=== PATIENT | male | born 1935 | race Caucasian/White ===

== ENCOUNTER 2022-01-19 05:23 | Day surgery (SDC) | payer OTHER ==
[2022-01-15 09:43] VITALS: BMI 23.5
[2022-01-19] MEDS ORDERED: BUPIVACAINE HCL/PF 0.5% (5MG/ML) 10 ML VIAL ONE (07:06)
[2022-01-19] MEDS ORDERED: TRIAMCINOLONE ACET 40MG/1ML VIAL ONE (07:06)
[2022-01-19] MEDS ORDERED: DEXAMETHASONE SOD PHOSPHATE 10 MG/1 ML VIAL ONE (07:06)
[2022-01-19] MEDS ORDERED: BUPIVACAINE HCL/PF 0.75% 10 ML VIAL ONE (07:06)
[2022-01-19] MEDS ORDERED: LIDOCAINE HCL/PF 1% SDV 5ML VIAL ONE (07:08)
[2022-01-19] MEDS ORDERED: SODIUM CHLORIDE 0.9% P/F 10 ML VIAL IJ ONE (07:25)
[2022-01-19] MEDS ORDERED: LIDOCAINE HCL 1% PRESERVATIVE FREE - 30ML VIAL IJ ONE (08:38)
[2022-01-19] MEDS ORDERED: IOHEXOL 180 MG/1 ML ML IJ ONE (08:39)
[2022-01-19] MEDS ORDERED: TRIAMCINOLONE ACET 40MG/1ML VIAL IM ONE (08:40)
[2022-01-19] MEDS ORDERED: BUPIVACAINE HCL/PF 0.5% (5MG/ML) 10 ML VIAL IJ ONE (08:40)
[2022-01-19 09:25] VITALS: TEMP 97.8
[2022-01-19 09:28] VITALS: BP 140/60; PULSE 60
== END 2022-01-19 09:00 | disposition home or self-care (01) ==
LOC: JASU-SURG 05:23
PROVIDERS: ATTEND Pain Medicine Pain Medicine
PROC: 3E0U3BZ Introduction of Anesthetic Agent into Joints, Percutaneous Approach (ICD-10-PCS; 2022-01-19)
PROC: BQ41ZZZ Ultrasonography of Left Hip (ICD-10-PCS; 2022-01-19)
PROC: 3E0U3NZ Introduction of Analgesics, Hypnotics, Sedatives into Joints, Percutaneous Approach (ICD-10-PCS; principal; 2022-01-19 09:00)
DX: M16.12 Unilateral primary osteoarthritis, left hip (principal); M25.552 Pain in left hip; I10 Essential (primary) hypertension
CPT/HCPCS: 76000-TC-FY; J1100

== ENCOUNTER 2022-02-19 05:31 | Day surgery (SDC) | payer OTHER ==
[2022-02-18 10:54] VITALS: BMI 23.5
[~2022-02-19 05:31] MED LIST: BUPIVACAINE HCL/PF 0.5% (5 MG/ML) 30 ML VIAL IJ ONE; LIDOCAINE HCL 1%, 10 MG/ML (20ML VIAL) SQ ONE
[2022-02-19] MEDS ORDERED: LIDOCAINE HCL/PF 1% SDV 5ML VIAL ONE (07:37)
[2022-02-19] MEDS ORDERED: DEXAMETHASONE SOD PHOSPHATE 10 MG/1 ML VIAL ONE (07:38)
[2022-02-19] MEDS ORDERED: LIDOCAINE HCL 1%, 10 MG/ML (20ML VIAL) SQ ONE ×2 (10:11)
[2022-02-19 10:48] VITALS: BP 151/53; PULSE 59; TEMP 98.9
== END 2022-02-19 11:00 | disposition home or self-care (01) ==
LOC: JASU-SURG 05:31
PROVIDERS: ATTEND Pain Medicine Pain Medicine
PROC: 3E0R33Z Introduction of Anti-inflammatory into Spinal Canal, Percutaneous Approach (ICD-10-PCS; 2022-02-19)
PROC: 3E0R3BZ Introduction of Anesthetic Agent into Spinal Canal, Percutaneous Approach (ICD-10-PCS; principal; 2022-02-19 10:00)
DX: M54.16 Radiculopathy, lumbar region (principal)
CPT/HCPCS: 76000-TC-FY; J1100

== ENCOUNTER 2022-05-07 04:24 | Day surgery (SDC) | payer OTHER ==
[2022-05-06 12:14] VITALS: BMI 23.5
[2022-05-07] MEDS ORDERED: LIDOCAINE HCL/PF 1% SDV 5ML VIAL ONE (07:14)
[2022-05-07] MEDS ORDERED: BUPIVACAINE HCL/PF 0.75% 10 ML VIAL ONE (07:14)
[2022-05-07] MEDS ORDERED: LIDOCAINE HCL 1% PRESERVATIVE FREE - 30ML VIAL IJ ONE ×2 (07:39→08:58)
[2022-05-07] MEDS ORDERED: BUPIVACAINE HCL/PF 0.75% 10 ML VIAL NR ONE (07:40)
[2022-05-07] MEDS ORDERED: IOHEXOL 180 MG/1 ML ML IJ ONE (07:41)
[2022-05-07 11:06] VITALS: BP 160/60; PULSE 70; TEMP 98.6
== END 2022-05-07 10:35 | disposition home or self-care (01) ==
LOC: JASU-SURG 04:24
PROVIDERS: ATTEND Pain Medicine Pain Medicine
PROC: 01HY3MZ Insertion of Neurostimulator Lead into Peripheral Nerve, Percutaneous Approach (ICD-10-PCS; principal; 2022-05-07 08:00)
DX: G89.4 Chronic pain syndrome (principal)
CPT/HCPCS: 64555; C1778

== ENCOUNTER 2022-07-23 05:26 | Day surgery (SDC) | payer OTHER ==
[2022-07-22 11:24] VITALS: BMI 23.5
[2022-07-23] MEDS ORDERED: LIDOCAINE HCL/PF 1% SDV 5ML VIAL ONE (07:14)
[2022-07-23] MEDS ORDERED: BUPIVACAINE HCL/PF 0.5% (5MG/ML) 10 ML VIAL ONE (07:14)
[2022-07-23] MEDS ORDERED: TRIAMCINOLONE ACET 40MG/1ML VIAL ONE (07:14)
[2022-07-23] MEDS ORDERED: LIDOCAINE HCL 1% PRESERVATIVE FREE - 30ML VIAL IJ ONE (15:33)
[2022-07-23] MEDS ORDERED: TRIAMCINOLONE ACET 40MG/1ML VIAL IM ONE (15:34)
[2022-07-23] MEDS ORDERED: BUPIVACAINE HCL/PF 0.5% (5MG/ML) 10 ML VIAL IJ ONE (15:34)
[2022-07-23 16:11] VITALS: BP 127/72; PULSE 82; RESP 20; TEMP 98
== END 2022-07-23 16:00 | disposition home or self-care (01) ==
LOC: JASU-SURG 05:26
PROVIDERS: ATTEND Pain Medicine Pain Medicine
PROC: 3E0U3BZ Introduction of Anesthetic Agent into Joints, Percutaneous Approach (ICD-10-PCS; 2022-07-23)
PROC: 3E0U33Z Introduction of Anti-inflammatory into Joints, Percutaneous Approach (ICD-10-PCS; principal; 2022-07-23 12:30)
DX: M53.3 Sacrococcygeal disorders, not elsewhere classified (principal)
CPT/HCPCS: 76000-TC-FY